=== PATIENT | female | born 1930 | race Caucasian/White ===

== ENCOUNTER 2016-10-01 12:16 | Emergency (ER) | payer OTHER ==
--- NOTE | 2016-10-01 13:04 | DIAGNOSTIC IMAGING REPORT ---
PROCEDURE: XR RIBS UNILAT W/PA CHEST-RT INDICATION: TRAUMA/INJURY TECHNIQUE: Two views of the right ribs with single PA view chest. COMPARISON: None. FINDINGS: RIGHT RIBS: There are nondisplaced fractures of the right tenth and eleventh ribs. No pneumothorax CHEST: Mild cardiomegaly. Clear lungs without pleural effusion, pneumothorax, or contusion. The other visible osseous structures are intact. IMPRESSION: 1. Nondisplaced fractures right tenth and eleventh ribs 2. Mild cardiomegaly. Lungs clear. 3. Results were called to Dr. Pop at 01:05 p.m.
--- NOTE | 2016-10-01 13:15 | DIAGNOSTIC IMAGING REPORT ---
PROCEDURE: CT HEAD WITHOUT CONTRAST INDICATION: TRAUMA/INJURY TECHNIQUE: Axial CT images were acquired through the head. Coronal and sagittal reformations were created. COMPARISON: Head CT 06/06/2014 FINDINGS: Mild cortical atrophy. Normal ventricular system and brain parenchyma. No evidence of an acute CVA, hemorrhage, mass or midline shift. Stable calcification in the right frontal lobe white matter. There is fluid in the right maxillary sinus and the right ethmoid sinus posteriorly. IMPRESSION: 1. No acute changes 2. Mild atrophy 3. Findings discussed with Donn at 1:[address] scans at this facility use dose modulation, iterative reconstruction, and/or weight-based dosing when appropriate to reduce radiation dose to as low as reasonably achievable.
--- NOTE | 2016-10-01 15:32 | ED NURSING NOTES ---
Clinical Report - Nurses [facility] [address] [place] [address] 10/01/2016 12:17 Patient: RICARDO AC TRIAGE Acuity: LEVEL 3. Chief Complaint: FALL while standing, landed on their head; became dizzy and passed out. Alert. No acute distress. KRISTYN COMA SCORE: [place] Coma Scale: 15- eyes open spontaneously (4); best verbal response- oriented x 4 (5); best motor response- obeys commands (6). --12:42 Deonna Gamez R.N. 12:34 10/01/16. BP: 159/78. HR: 60. RR: 18. O2 saturation: 97% on room air. Temp: 98.4 F (oral). Pain level now: 04/24. --12:42 Deonna Gamez R.N. Weight: 68 kg stated. Height/Length: 62 inches Per Patient. BMI: 27.4. --12:38 Deonna Gamez R.N. Medications ALPRAZolam Oral. Issa Aspirin Oral 81mg. Crestor Oral 10 mg, daily. Hydrochlorothiazide Oral 25 mg, daily. --12:37 Deonna Gamez R.N. Levoxyl Oral 75 mcg, daily. Metoprolol 100 mg, 2x a day. Omeprazole Oral. Potassium day. Tramodol 50mg q 4-6 hrs. Vit b-12, cholesterol, fish oil. --12:37 Deonna Gamez R.N. Azithromycin Oral. --12:38 Deonna Gamez R.N. Allergies Iodine. Sulfa Drugs. --12:37 Deonna aGmez R.N. History Arrived by private vehicle. Historian: patient. Accompanied by daughter. Primary physician (Bj). Location of injuries: head and right flank. This occurred today. PAST MEDICAL HX: The patient has had a hysterectomy. SOCIAL HX: Never smoker. No alcohol use or drug use. NUTRITIONAL RISK ASSESSMENT: The nutritional risk assessment revealed no deficiencies. LEARNING NEEDS ASSESSMENT: The learning needs assessment revealed no barriers. FALL RISK ASSESSMENT: Fall risk assessment completed. Risk factors identified include patient age greater than 65 years and history of fall. Fall interventions initiated. Patient placed on stretcher. Side rails up x2. Brakes on Bed in low position. Call light in reach of patient. FUNCTIONAL ASSESSMENT: Functional assessment performed: independent with the activities of daily living. SKIN INTEGRITY ASSESSMENT: Skin integrity risk assessment completed. No skin integrity risk identified. --12:42 Deonna Gamez R.N. PROBLEMS: Hip pain . Back Pain. Dizziness. Abdominal Pain. Abnormal Test. Immunizations. LNMP - Last Normal Menstrual Period. Medical Screening Exam. Hyperlipidemia. Anxiety Reaction. Dehydration. Hypokalemia. Near Syncope. Salter's Palsy. CVA - Cerebrovascular Accident. Hypothyroidism. Hypertension. --12:38 Deonna Gamez R.N. ADDITIONAL SURGERIES: Appendectomy. Colon resection. Hysterectomy. Oophorectomy. Tonsillectomy. --12:38 Deonna Gamez R.N. Assessment GENERAL / NEURO / PSYCH: Alert. Oriented X 4. Appears in no acute distress. Patient appears calm and cooperative. RESPIRATORY: Respirations not labored. CVS: Capillary refill less than 2 seconds. GI / : Abdomen soft. SKIN: Mucous membranes are pink. Skin is warm and dry. --12:42 Deonna Gamez R.N. Interventions ID band on patient. To treatment room. --12:42 Deonna Gamez R.N. PHYSICAL ASSESSMENT 12:42 10/01/16. To room via wheelchair. GENERAL / NEURO / PSYCH: Alert. Oriented X 4. Appears in no acute distress. HEENT: Pupils equal, round and reactive to light. RESPIRATORY: Respirations not labored. CVS: Pulses within normal limits. Capillary refill less than 2 seconds. GI / : Abdomen soft. EXTREMITIES: Neuro-vascular status intact to the extremity. SKIN: Skin intact. Skin is warm and dry. --12:42 Deonna Gamez R.N. HEENT: Head: tenderness, swelling and laceration present. --12:42 Deonna Gamez R.N. NURSING PROGRESS NOTES 12:43 10/01/16. Patient gowned. Two patient identifiers checked. Call light placed in reach. Side rails up x 2. Bed placed in lowest position. Brakes of bed on. Patient ready for evaluation- chart flagged. --12:43 Deonna Gamez R.N. Wound cleansed with sterile saline. --12:46 Jazmyne Wells, ER Tech1 Warming measures: blanket applied. --12:46 Jazmyne Wells, ER Tech1 13:06 10/01/2016 Hydrocodone-APAP (Hydrocodone-Acetaminophen) PO 5/325 mg Tablets 1 tab given. Allergies verified, confirmed 5 rights and sedative warning given to the patient. --13:06 Deonna Gamez R.N. 13:32 10/01/2016 Hydrocodone-APAP PO Response: no adverse reaction pain is improving. Symptoms have improved the patient feels better. --13:32 Deonna Gamez R.N. 15:43 10/01/2016 Zofran ODT (Ondansetron) PO 4 mg given. Allergies verified and confirmed 5 rights. --15:43 Deonna Gamez R.N. DISPOSITION / DISCHARGE 15:27 10/01/16. BP: 148/98. HR: 59. RR: 18. O2 saturation: 100%. Temp: 98.4 F (oral). Pain level now: 03/24. --15:28 Deonna Gamez R.N. Departure time: 1554Oct 01 2016. Condition at departure: improved and stable. No learning barriers present. Discharge instructions provided and reviewed with the patient. Reviewed medication(s) side effects, precautions and dosing information. Prescription(s) given to the patient. Patient verbalized understanding. Written instructions provided in Faroese. The patient was discharged by the physician. She was discharged home and accompanied by family. She left the Emergency Department ambulatory and via private vehicle. Family member driving. --18:55 Deonna Gamez R.N. Locked/Released at 10/01/2016 18:55 by Deonna Gamez R.N.
--- NOTE | 2016-10-01 15:32 | ED CLINICAL REPORT ---
Clinical Report - Physicians/Mid Levels [facility] [address] [place] [address] 10/01/2016 12:17 [id number] Historian- patient and family. HISTORY OF PRESENT ILLNESS Location of injuries- head and chest. Chief Complaint: FALL. The injury occurred today. Fell (slipped while standing). She experienced a syncopal episode; (after the first fall). Occurred at home. The patient complains of moderate pain. The patient sustained a blow to the head and had loss of consciousness. No neck pain or seizure. Not dazed. (no preceding symptoms). REVIEW OF SYSTEMS No numbness, hearing loss, chest pain, weakness or nausea. No vomiting. All systems otherwise negative, except as recorded above. PAST HISTORY See nurses notes. Tetanus immunization status is up-to-date. SOCIAL HISTORY Never smoker. No alcohol use or drug use. Is a local resident. ADDITIONAL NOTES The nursing notes have been reviewed. PHYSICAL EXAM Vital Signs: 10/01/2016 12:34 BP: 159/78. HR: 60. RR: 18. O2 saturation: 97%. Temp: 98.4 F. Pain level now: 8/10. Blood pressure normal. Oxygen saturation normal. Appearance: Alert. Oriented X3. No acute distress. Head: No swelling of head. No Hodge's sign or raccoon eyes. (superficial abrasion to the occipital area of the scalp. no step offs, crepitus, or jamaal abnormalities.). Eyes: Pupils equal, round and reactive to light. Pupillary exam: Right pupil round and reactive to light directly and consensually and with accommodation. Left pupil: 3mm, round and reactive to light directly and consensually and with accommodation. EOM intact. ENT: No hemotympanum. Pharynx abnormal. Dental injury present. No malocclusion. Neck: No decreased ROM or muscle spasm in the neck. No pain with movement of head/neck. Painless ROM. Non-tender. No vertebral tenderness. CVS: Heart sounds normal. Pulses normal. Respiratory: Breath sounds normal. (mild tenderness and swelling to the right lateral chest wall. no overlying skin changes, crepitus, or jamaal abnormalities.). Abdomen: No visible injury. Soft and nontender. Bowel sounds normal. No organomegaly. No mass. Femoral pulses equal. Back: No tenderness. ROM normal. Skin: Skin intact. Skin warm and dry. Normal skin color. Normal skin turgor. Extremities: Normal inspection. Pelvis stable. Extremities atraumatic. No lower extremity edema. Neuro: Oriented X 3. No motor deficit. No sensory deficit. LABS, X-RAYS, AND EKG Sternum / Ribs X-rays: (PROCEDURE: XR RIBS UNILAT W/PA CHEST-RT INDICATION: TRAUMA/INJURY TECHNIQUE: Two views of the right ribs with single PA view chest. COMPARISON: None. FINDINGS: RIGHT RIBS: There are nondisplaced fractures of the right tenth and eleventh ribs. No pneumothorax CHEST: Mild cardiomegaly. Clear lungs without pleural effusion, pneumothorax, or contusion. The other visible osseous structures are intact. IMPRESSION: 1. Nondisplaced fractures right tenth and eleventh ribs 2. Mild cardiomegaly. Lungs clear.). Views: PA and lateral of sternum and left ribs. The X-rays were independently viewed by me, interpreted by the radiologist and discussed with the radiologist. CT Head: (PROCEDURE: CT HEAD WITHOUT CONTRAST INDICATION: TRAUMA/INJURY TECHNIQUE: Axial CT images were acquired through the head. Coronal and sagittal reformations were created. COMPARISON: Head CT 06/06/2014 FINDINGS: Mild cortical atrophy. Normal ventricular system and brain parenchyma. No evidence of an acute CVA, hemorrhage, mass or midline shift. Stable calcification in the right frontal lobe white matter. There is fluid in the right maxillary sinus and the right ethmoid sinus posteriorly. IMPRESSION: 1. No acute changes 2. Mild atrophy). Head CT performed without contrast. The study was independently viewed by me and interpreted by the radiologist. The study was discussed with the radiologist (via phone and pacs). PROGRESS AND PROCEDURES Course of Care: The patient is a pleasant 85-year-old female with past medical history presenting for evaluation of fall. The patient is reporting head injury and right-sided rib pain at this time. The patient had fallen once and then fallen again afterwards. The second fall is likely due to the first fall given the patient's history. Patient will be requiring a CT scan of the head for further evaluation of head injury. Patient is not on any blood thinners. A chest x-ray and rib films of the right side also be ordered and are urged to the patient's reported chest wall pain and related findings on examination. Pain medication provided here in the emergency department. Patient is agreeable to the treatment plan. Family also updated about the patient's workup and they're agreeable. Do not feel patient needs to be evaluated for the syncope with laboratory studies were EKG. Given patient's history and examination, patient likely had syncopal event secondary to head injury. Patient's workup does not show any signs of acute intracranial pathology at this time. Wounds to the back of the head does not require suturing at this time. It has been irrigated in the emergency department. Wound infection risk discussed and return precautions provided in regards to the scalp abrasion. The patient does have findings of rib fractures on the rib films. Head discussion with patient and family in regards to the evaluation of the rib fractures. Had expressed a small risk of developing pneumonia if the patient does not take deep breaths. At this time, conservative management with pain medication and close follow-up is recommended. Patient does not need to be admitted to the hospital or require further emergency department evaluation. Discussed with patient and family workup, diagnosis, home care, follow-up, and return depressions. All questions answered. The patient and family expressed understanding of these instructions and was agreeable to them. Prior to patient's departure from the emergency department, repeat examination continues to be benign. Patient continues to be asymptomatic. Disposition: Discharged. Condition: good. CLINICAL IMPRESSION Multiple right rib fractures (10th and 11th rib, non displaced, closed). Minor closed head injury. Unknown whether a loss of consciousness occurred. (acute occipital). INSTRUCTIONS Warnings: GENERAL WARNINGS: Return or contact your physician immediately if your condition worsens or changes unexpectedly, if not improving as expected, or if other problems arise. SPECIFICALLY, return if you develop weakness, numbness, tingling, pain or incontinence. fever, shortness of breath, worsening symptoms, abnormal behavior, or other concerns. Your Current Medications: CONTINUE TAKING THE FOLLOWING MEDICATIONS: ALPRAZolam Oral. Azithromycin Oral. Issa Aspirin Oral : 81mg. Crestor Oral : 10 mg daily. Hydrochlorothiazide Oral : 25 mg daily. Levoxyl Oral : 75 mcg daily. Metoprolol* : 100 mg 2x a day. Omeprazole Oral. Potassium day*. Tramodol 50mg q 4-6 hrs*. Vit b-12, cholesterol, fish oil*. Prescription Medications: [place] 5 mg / 325 mg tablets: take 1 orally as needed for pain. Dispense fifteen (15). No refill. Substitution is permissible. Motrin 600 mg tablets: take 1 tablet orally every 6 hours as needed for pain or swelling. Dispense thirty (30). No refill. Substitution is permissible. Follow-up: Return to the emergency department as needed. Follow up with your doctor in three days. Reason for referral: recheck today's concerns. Summary of care provided to patient via paper. Screening today revealed the patient's blood pressure to be in the normal range. The patient should follow up with a primary care provider for blood pressure management. Understanding of the discharge instructions verbalized by patient. (Electronically signed by Davion Pop Dr. 10/05/2016 6:27)
--- NOTE | 2016-10-01 15:32 | ED ORDER SUMMARY ---
..... Patient: RICARDO AC OrderSheet [facility] VisitID: [id number] [place] [address] 85y, F Registration Date/Time: 10/01/2016 ORDER SHEET Weight: 68.0 kg (stated) Allergies: Iodine, Sulfa Drugs GENERAL ORDERS: CT Head wo Cont Urgent (12:37 10/01/2016 Luis Antonio Rey) (Ack 12:51 MWinterer R.N.) (13:06 MWinterer R.N.) Ribs Unilat w PA Chest Right Urgent (12:37 10/01/2016 Luis Antonio Rey) (Ack 12:51 MWinterer R.N.) (13:06 MWinterer R.N.) Irrigate Wounds (12:37 10/01/2016 Luis Antonio Rey) (12:43 MWinterer R.N.) Ice (12:39 10/01/2016 Luis Antonio Rey) (Ack 12:43 MWinterer R.N.) (12:51 MWinterer R.N.) MEDICATION ORDERS: Hydrocodone-APAP PO 5/325 mg (NOW, HIGH ALERT MEDICATION) (12:38 10/01/2016 Luis Antonio Rey) (Ack 12:43 MWinterer R.N.) (13:06 MWinterer R.N.) Zofran ODT PO 4 mg (NOW) (15:43 10/01/2016 MWinterer R.N. per protocol) (15:43 MWinterer R.N.) IV FLUIDS: ORDER SHEET NOTES: [Electronically signed by Deonna Gamez R.N. (18:55 10/01/2016)] [Electronically signed by Davion Pop Dr. (06:27 10/05/2016)] [Electronically locked/signed by Deonna Gamez R.N. (18:55 10/01/2016)]
--- NOTE | 2016-10-01 15:32 | ED ORDER SUMMARY ---
..... Patient: RICARDO AC OrderSheet [facility] VisitID: [id number] [place] [address] 85y, F Registration Date/Time: 10/01/2016 ORDER SHEET Weight: 68.0 kg (stated) Allergies: Iodine, Sulfa Drugs GENERAL ORDERS: CT Head wo Cont Urgent (12:37 10/01/2016 Luis Antonio Rey) (Ack 12:51 MWinterer R.N.) (13:06 MWinterer R.N.) Ribs Unilat w PA Chest Right Urgent (12:37 10/01/2016 Luis Antonio Rey) (Ack 12:51 MWinterer R.N.) (13:06 MWinterer R.N.) Irrigate Wounds (12:37 10/01/2016 Luis Antonio Rey) (12:43 MWinterer R.N.) Ice (12:39 10/01/2016 Luis Antonio Rey) (Ack 12:43 MWinterer R.N.) (12:51 MWinterer R.N.) MEDICATION ORDERS: Hydrocodone-APAP PO 5/325 mg (NOW, HIGH ALERT MEDICATION) (12:38 10/01/2016 Luis Antonio Rey) (Ack 12:43 MWinterer R.N.) (13:06 MWinterer R.N.) Zofran ODT PO 4 mg (NOW) (15:43 10/01/2016 MWinterer R.N. per protocol) (15:43 MWinterer R.N.) IV FLUIDS: ORDER SHEET NOTES: [Electronically signed by Deonna Gamez R.N. (18:55 10/01/2016)] [Electronically signed by Davion Pop Dr. (06:27 10/05/2016)] [Electronically locked/signed by Deonna Gamez R.N. (18:55 10/01/2016)]
--- NOTE | 2016-10-05 06:28 | ED DISCHARGE INSTRUCTIONS ---
Patient: RICARDO AC General Instructions [facility] VisitID: [id number] [place] [address] 85y, F Registration Date/Time: 10/01/2016 Multiple right rib fractures (10th and 11th rib, non displaced, closed). Minor closed head injury. Unknown whether a loss of consciousness occurred. (acute occipital). INSTRUCTIONS Warnings: GENERAL WARNINGS: Return or contact your physician immediately if your condition worsens or changes unexpectedly, if not improving as expected, or if other problems arise. SPECIFICALLY, return if you develop weakness, numbness, tingling, pain or incontinence. fever, shortness of breath, worsening symptoms, abnormal behavior, or other concerns. Your Current Medications: CONTINUE TAKING THE FOLLOWING MEDICATIONS: ALPRAZolam Oral. Azithromycin Oral. Issa Aspirin Oral : 81mg. Crestor Oral : 10 mg daily. Hydrochlorothiazide Oral : 25 mg daily. Levoxyl Oral : 75 mcg daily. Metoprolol* : 100 mg 2x a day. Omeprazole Oral. Potassium day*. Tramodol 50mg q 4-6 hrs*. Vit b-12, cholesterol, fish oil*. Prescription Medications: [place] 5 mg / 325 mg tablets: take 1 orally as needed for pain. Dispense fifteen (15). No refill. Substitution is permissible. Motrin 600 mg tablets: take 1 tablet orally every 6 hours as needed for pain or swelling. Dispense thirty (30). No refill. Substitution is permissible. Follow-up: Return to the emergency department as needed. Follow up with your doctor in three days. Reason for referral: recheck today's concerns. Summary of care provided to patient via paper. Screening today revealed the patient's blood pressure to be in the normal range. The patient should follow up with a primary care provider for blood pressure management. Understanding of the discharge instructions verbalized by patient. ADDITIONAL INFORMATION Concussion (No Wake-Up) A concussion happens when you hit your head with enough force to shake up the brain. This may cause you to lose consciousness be "knocked out" - but not always. Depending on how hard you hit your head, it will take from a few hours up to a few days to get better. Sometimes symptoms may last a few months or longer. This is called post-concussion syndrome. At first, you may have a headache, nausea, vomiting, or dizziness. You may also have problems concentrating or remembering things. This is normal. Symptoms should get better as the hours and days go by. Symptoms that get worse could be a sign of a more serious injury. This might be a bruise or bleeding in the brain. Thats why its important to watch for the warning signs listed below. Home care Follow these tips to help care for yourself at home: During the next day (24 hours) someone must stay with you to check for the signs below. If your face or scalp swells, apply an ice pack for 20 minutes every 1 to 2 hours. Do this until the swelling starts to go down. You can make an ice pack by putting ice cubes in a plastic bag and wrapping the bag in a towel. for 20 minutes every 1-2 hours until the swelling starts to go down. You may use acetaminophen to control pain, unless another pain medicine was prescribed. If you have chronic liver or kidney disease, talk with your doctor before using these medicines. Also talk with your doctor if you ever had a stomach ulcer or GI bleeding. For the next 24 hours: Dont drink alcohol or take sedatives or medicines that make you sleepy. Dont drive or operate machinery. Avoid doing anything strenuous. Dont lift or strain. Dont return to sports or any activity that could cause you to hit your head until all symptoms are gone and you have been cleared by your doctor. A second head injury before fully recovering from the first one can lead to serious brain injury. Follow-up care Follow up with your doctor in 1 week, or as directed. Note: A radiologist will review any X-rays or CT scans that were taken. You will be told of any new findings that may affect your care. When to seek medical care Get prompt medical attention if any of these occur: Repeated vomiting Headache or dizziness that is severe or gets worse Unusual drowsiness, or unable to wake up as usual Confusion or change in behavior or speech, or memory loss Blurred vision Convulsion (seizure) Swelling on the scalp or face that gets worse Redness, warmth, or pus from the swollen area Fluid draining from or bleeding from the nose or ears Rib Fracture You have a fracture (break) of one or more ribs. Rib fractures do not require a cast like other bones. They will heal by themselves in about 4-6 weeks. The first 3-4 weeks will be the most painful because deep breathing, coughing or changing position from sitting to lying down, may cause the broken ends to move slightly. Home Care: Rest. You should not be doing any heavy lifting or strenuous exertion until the pain goes away. Because it hurts to breathe when you have a broken rib, there is risk of getting pneumonia from poor airflow through your lungs. To prevent this: Take four very deep breaths at least four times a day (exhale through pursed lips as if you are blowing up a balloon). If an "incentive spirometer" (breathing exercise device) was given to you, use it at least four times a day, or as directed. Apply an ice pack (ice cubes in a plastic bag, wrapped in a towel) over the injured area for 20 minutes every 1-2 hours the first day. Continue with ice packs 3-4 times a day for the next two days, then as needed for the relief of pain and swelling. You may use acetaminophen (Tylenol) or ibuprofen (Motrin, Advil) to control pain, unless another pain medicine was prescribed. [NOTE: If you have chronic liver or kidney disease or ever had a stomach ulcer or GI bleeding, talk with your doctor before using these medicines.] If your pain is not controlled by the treatment given, contact your doctor. Sometimes a stronger pain medicine may be needed. A nerve block (numbing the nerve between the ribs) can be performed in case of severe pain. Follow Up with your doctor during the next week, or as advised. Rarely, a broken rib will cause complications within the first few days that may not be evident during your initial exam (such as, collapsed lung, bleeding around the lung or into the abdomen, or pneumonia). Therefore, watch for the signs below. [NOTE: If x-rays were taken, they will be reviewed by a radiologist. You will be notified of any new findings that may affect your care.] Get Prompt Medical Attention if any of the following occur: Shortness of breath Increasing chest pain with breathing Dizziness, weakness or fainting New or worsening abdominal pain Fever of 100.4F (38C) or higher, or as directed by your healthcare provider Congested cough Hydrocodone Bitartrate, Acetaminophen Oral tablet What is this medicine? ACETAMINOPHEN; HYDROCODONE (a set a JOSELUIS solomon fen; ahmet droe KOE done) is a pain reliever. It is used to treat mild to moderate pain. How should I use this medicine? Take this medicine by mouth. Swallow it with a full glass of water. Follow the directions on the prescription label. If the medicine upsets your stomach, take the medicine with food or milk. Do not take more than you are told to take. Talk to your medical office specialist regarding the use of this medicine in children. This medicine is not approved for use in children. What side effects may I notice from receiving this medicine? Side effects that you should report to your doctor or health certified social workers in health care as soon as possible: allergic reactions like skin rash, itching or hives, swelling of the face, lips, or tongue breathing problems confusion feeling faint or lightheaded, falls stomach pain yellowing of the eyes or skin Side effects that usually do not require medical attention (report to your doctor or health certified social workers in health care if they continue or are bothersome): nausea, vomiting stomach upset What may interact with this medicine? alcohol antihistamines isoniazid medicines for depression, anxiety, or psychotic disturbances medicines for sleep muscle relaxants naltrexone narcotic medicines (opiates) for pain phenobarbital ritonavir tramadol What if I miss a dose? If you miss a dose, take it as soon as you can. If it is almost time for your next dose, take only that dose. Do not take double or extra doses. Where should I keep my medicine? Keep out of the reach of children. This medicine can be abused. Keep your medicine in a safe place to protect it from theft. Do not share this medicine with anyone. Selling or giving away this medicine is dangerous and against the law. Store at room temperature between 15 and 30 degrees C (59 and 86 degrees F). Protect from light. Keep container tightly closed. Throw away any unused medicine after the expiration date. Discard unused medicine and used packaging carefully. Pets and children can be harmed if they find used or lost packages. What should I tell my health care provider before I take this medicine? They need to know if you have any of these conditions: brain tumor Crohn's disease, inflammatory bowel disease, or ulcerative colitis drink more than 3 alcohol-containing drinks per day drug abuse or addiction head injury heart or circulation problems kidney disease or problems going to the bathroom liver disease lung disease, asthma, or breathing problems an unusual or allergic reaction to acetaminophen, hydrocodone, other opioid analgesics, other medicines, foods, dyes, or preservatives or trying to get breast-feeding What should I watch for while using this medicine? Tell your doctor or health certified social workers in health care if your pain does not go away, if it gets worse, or if you have new or a different type of pain. You may develop tolerance to the medicine. Tolerance means that you will need a higher dose of the medicine for pain relief. Tolerance is normal and is expected if you take the medicine for a long time. Do not suddenly stop taking your medicine because you may develop a severe reaction. Your body becomes used to the medicine. This does NOT mean you are addicted. Addiction is a behavior related to getting and using a drug for a non-medical reason. If you have pain, you have a medical reason to take pain medicine. Your doctor will tell you how much medicine to take. If your doctor wants you to stop the medicine, the dose will be slowly lowered over time to avoid any side effects. You may get drowsy or dizzy when you first start taking the medicine or change doses. Do not drive, use machinery, or do anything that may be dangerous until you know how the medicine affects you. Stand or sit up slowly. There are different types of narcotic medicines (opiates) for pain. If you take more than one type at the same time, you may have more side effects. Give your health care provider a list of all medicines you use. Your doctor will tell you how much medicine to take. Do not take more medicine than directed. Call emergency for help if you have problems breathing. The medicine will cause constipation. Try to have a bowel movement at least every 2 to 3 days. If you do not have a bowel movement for 3 days, call your doctor or health certified social workers in health care. Too much acetaminophen can be very dangerous. Do not take Tylenol (acetaminophen) or medicines that contain acetaminophen with this medicine. Many non-prescription medicines contain acetaminophen. Always read the labels carefully. Ibuprofen Oral tablet What is this medicine? IBUPROFEN (eye BYOO proe fen) is a non-steroidal anti-inflammatory drug (NSAID). It is used for dental pain, fever, headaches or migraines, osteoarthritis, rheumatoid arthritis, or painful monthly periods. It can also relieve minor aches and pains caused by a cold, flu, or sore throat. How should I use this medicine? Take this medicine by mouth with a glass of water. Follow the directions on the prescription label. Take this medicine with food if your stomach gets upset. Try to not lie down for at least 10 minutes after you take the medicine. Take your medicine at regular intervals. Do not take your medicine more often than directed. A special MedGuide will be given to you by the pharmacist with each prescription and refill. Be sure to read this information carefully each time. Talk to your medical office specialist regarding the use of this medicine in children. Special care may be needed. What side effects may I notice from receiving this medicine? Side effects that you should report to your doctor or health certified social workers in health care as soon as possible: allergic reactions like skin rash, itching or hives, swelling of the face, lips, or tongue black or bloody stools, blood in the urine or in vomit breathing problems changes in vision chest pain general ill feeling or flu-like symptoms nausea or vomiting redness, blistering, peeling or loosening of the skin, including inside the mouth slurred speech or weakness on one side of the body stomach pain unexplained weight gain or swelling unusually weak or tired yellowing of eyes or skin Side effects that usually do not require medical attention (report to your doctor or health certified social workers in health care if they continue or are bothersome): constipation or diarrhea dizziness gas or heartburn stomach upset What may interact with this medicine? Do not take this medicine with any of the following medications: cidofovir ketorolac methotrexate pemetrexed This medicine may also interact with the following medications: alcohol aspirin diuretics lithium other drugs for inflammation like prednisone warfarin What if I miss a dose? If you miss a dose, take it as soon as you can. If it is almost time for your next dose, take only that dose. Do not take double or extra doses. Where should I keep my medicine? Keep out of the reach of children. Store at room temperature between 15 and 30 degrees C (59 and 86 degrees F). Keep container tightly closed. Throw away any unused medicine after the expiration date. What should I tell my health care provider before I take this medicine? They need to know if you have any of these conditions: asthma cigarette smoker drink more than 3 alcohol containing drinks a day heart disease or circulation problems such as heart failure or leg edema (fluid retention) high blood pressure kidney disease liver disease stomach bleeding or ulcers an unusual or allergic reaction to ibuprofen, aspirin, other NSAIDS, other medicines, foods, dyes, or preservatives or trying to get breast-feeding What should I watch for while using this medicine? Tell your doctor or healthcare professional if your symptoms do not start to get better or if they get worse. This medicine does not prevent heart attack or stroke. In fact, this medicine may increase the chance of a heart attack or stroke. The chance may increase with longer use of this medicine and in people who have heart disease. If you take aspirin to prevent heart attack or stroke, talk with your doctor or health certified social workers in health care. Do not take other medicines that contain aspirin, ibuprofen, or naproxen with this medicine. Side effects such as stomach upset, nausea, or ulcers may be more likely to occur. Many medicines available without a prescription should not be taken with this medicine. This medicine can cause ulcers and bleeding in the stomach and intestines at any time during treatment. Ulcers and bleeding can happen without warning symptoms and can cause . To reduce your risk, do not smoke cigarettes or drink alcohol while you are taking this medicine. You may get drowsy or dizzy. Do not drive, use machinery, or do anything that needs mental alertness until you know how this medicine affects you. Do not stand or sit up quickly, especially if you are an older patient. This reduces the risk of dizzy or fainting spells. This medicine can cause you to bleed more easily. Try to avoid damage to your teeth and gums when you brush or floss your teeth. You have been given the following additional information: Concussion, No Wake-Up Fracture, Rib Hydrocodone Bitartrate, Acetaminophen Oral tablet Ibuprofen Oral tablet (Electronically signed by Davion Pop Dr. 10/05/2016 6:27)
--- NOTE | 2016-10-05 06:28 | ED MED RECONCILIATION SUMMARY ---
Patient: RICARDO AC Medication Reconciliation Report [facility] VisitID: [id number] [place] [address] 85y, F Registration Date/Time: 10/01/2016 Weight: 68.0 kg Height/Length: 62 in. BMI: 27.4 ALLERGIES: Iodine, Sulfa Drugs The patient's Home Medications are listed below: CONTINUE TAKING THE FOLLOWING MEDICATIONS: ALPRAZolam Oral Azithromycin Oral Issa Aspirin Oral 81mg Crestor Oral 10 mg, daily Hydrochlorothiazide Oral 25 mg, daily Levoxyl Oral 75 mcg, daily Metoprolol 100 mg, 2x a day Omeprazole Oral Potassium day Tramodol 50mg q 4-6 hrs Vit b-12, cholesterol, fish oil The source(s) of the original Home Medication information: Not obtained. The following Medications were given to the patient in the Emergency Department: Hydrocodone-APAP [PO] PO 1 tab, administered: 10/01/2016 1:06:00 PM Zofran ODT [PO] PO 4 mg, administered: 10/01/2016 3:43:00 PM The following Medications were prescribed to the patient: [place] 5 mg / 325 mg tablets: take 1 orally as needed for pain. Dispense fifteen (15). No refill. Substitution is permissible. -- Davion Pop Dr. Motrin 600 mg tablets: take 1 tablet orally every 6 hours as needed for pain or swelling. Dispense thirty (30). No refill. Substitution is permissible. -- Davion Pop Dr.
--- NOTE | 2016-10-05 06:28 | ED MAR SUMMARY ---
..... Medication Administration Record [facility] [address] [place] [address] Patient: RICARDO AC Visit ID: [id number] 85y, F Weight: 68.0 kg Height/Length: 62 in BMI: 27.4 ALLERGIES: Iodine, Sulfa Drugs Given 13:06 10/01/2016 Deonna Gamez, RElizabethNElizabeth Medication Administered: HYDROCODONE-APAP [PO] (HYDROCODONE-ACETAMINOPHEN), Dose: 1 tab 5/325 mg Tablets PO. Medication Ordered: Hydrocodone-APAP PO 5/325 mg (NOW, HIGH ALERT MEDICATION). Given 15:43 10/01/2016 Deonna Gamez, RElizabethN. Medication Administered: ZOFRAN ODT [PO] (ONDANSETRON), Dose: 4 mg PO. Medication Ordered: Zofran ODT PO 4 mg (NOW).
--- NOTE | 2016-10-05 06:28 | ED MAR SUMMARY ---
..... Medication Administration Record [facility] [address] [place] [address] Patient: RICARDO AC Visit ID: [id number] 85y, F Weight: 68.0 kg Height/Length: 62 in BMI: 27.4 ALLERGIES: Iodine, Sulfa Drugs Given 13:06 10/01/2016 Deonna Gamez, RElizabethNElizabeth Medication Administered: HYDROCODONE-APAP [PO] (HYDROCODONE-ACETAMINOPHEN), Dose: 1 tab 5/325 mg Tablets PO. Medication Ordered: Hydrocodone-APAP PO 5/325 mg (NOW, HIGH ALERT MEDICATION). Given 15:43 10/01/2016 Deonna Gamez, RElizabethN. Medication Administered: ZOFRAN ODT [PO] (ONDANSETRON), Dose: 4 mg PO. Medication Ordered: Zofran ODT PO 4 mg (NOW).
--- NOTE | 2016-10-05 06:28 | ED MED RECONCILIATION SUMMARY ---
Patient: RICARDO AC Medication Reconciliation Report [facility] VisitID: [id number] [place] [address] 85y, F Registration Date/Time: 10/01/2016 Weight: 68.0 kg Height/Length: 62 in. BMI: 27.4 ALLERGIES: Iodine, Sulfa Drugs The patient's Home Medications are listed below: CONTINUE TAKING THE FOLLOWING MEDICATIONS: ALPRAZolam Oral Azithromycin Oral Issa Aspirin Oral 81mg Crestor Oral 10 mg, daily Hydrochlorothiazide Oral 25 mg, daily Levoxyl Oral 75 mcg, daily Metoprolol 100 mg, 2x a day Omeprazole Oral Potassium day Tramodol 50mg q 4-6 hrs Vit b-12, cholesterol, fish oil The source(s) of the original Home Medication information: Not obtained. The following Medications were given to the patient in the Emergency Department: Hydrocodone-APAP [PO] PO 1 tab, administered: 10/01/2016 1:06:00 PM Zofran ODT [PO] PO 4 mg, administered: 10/01/2016 3:43:00 PM The following Medications were prescribed to the patient: [place] 5 mg / 325 mg tablets: take 1 orally as needed for pain. Dispense fifteen (15). No refill. Substitution is permissible. -- Davion Pop Dr. Motrin 600 mg tablets: take 1 tablet orally every 6 hours as needed for pain or swelling. Dispense thirty (30). No refill. Substitution is permissible. -- Davion Pop Dr.
== END 2016-10-01 16:14 | disposition home or self-care (01) ==
LOC: ED SRH 12:16
DX: S22.41XA Multiple fractures of ribs, right side, initial encounter for closed fracture (principal); W01.0XXA Fall on same level from slipping, tripping and stumbling without subsequent striking against object, initial encounter; Y92.009 Unspecified place in unspecified non-institutional (private) residence as the place of occurrence of the external cause; Y93.9 Activity, unspecified; Y99.9 Unspecified external cause status

== ENCOUNTER 2017-02-11 17:39 | Emergency (ER) | payer OTHER ==
--- NOTE | 2017-02-11 20:00 | DIAGNOSTIC IMAGING REPORT ---
PROCEDURE: XR CHEST 1 VIEW INDICATION: WEAKNESS TECHNIQUE: Portable AP view (19 3 hours). COMPARISON: Compared to chest x-ray on 06/06/2014. FINDINGS: Lungs are clear. Mild cardiomegaly. Tortuous thoracic aorta. Old healed fracture of the left humeral head and neck. Thorax is otherwise normal. IMPRESSION: 1. Mild cardiomegaly. 2. Otherwise negative chest.
--- NOTE | 2017-02-11 21:31 | ED NURSING NOTES ---
Clinical Report - Nurses [facility] [address] [place] [address] 02/11/2017 17:39 [id number] Triage time 17:47 Feb 11 2017. Acuity: LEVEL 3. Chief Complaint: WEAKNESS (High BP). KRISTYN COMA SCORE: [place] Coma Scale: 15- eyes open spontaneously (4); best verbal response- oriented x 4 (5); best motor response- obeys commands (6). --17:51 Abel Mack R.N. 17:46 02/11/17. BP: 198/84. HR: 74. RR: 20. O2 saturation: 98%. Temp: 97.8 F. Pain level now 0/10. --17:51 Abel Mack R.N. Weight: 70.3 kg stated. Height/Length: 62 inches Per Patient. BMI: 28.4. --17:51 Abel Mack R.N. Medications ALPRAZolam Oral. --17:49 Abel Mack R.N. Azithromycin Oral. Issa Aspirin Oral 81mg. Crestor Oral 10 mg, daily. Hydrochlorothiazide Oral 25 mg, daily. Levoxyl Oral 75 mcg, daily. Metoprolol 100 mg, 2x a day. Omeprazole Oral. Potassium day. Tramodol 50mg q 4-6 hrs. Vit b-12, cholesterol, fish oil. --17:49 Abel Mack R.N. Allergies Iodine. Sulfa Drugs. --17:49 Abel Mack R.N. History Arrived by private vehicle. Historian: patient. Accompanied by family. ( 2 days of feeling really tired "like carrying a weight".). She has had weakness. No fever, cough, difficulty breathing or skin rash. Denies muscle aches. 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 PAST MEDICAL HX: Hypertension. No history of diabetes mellitus, heart disease or lung disease. Immunizations: up-to-date. The patient is post-menopausal. SOCIAL HX: Never smoker. No alcohol use or drug use. SELF HARM ASSESSMENT: A self harm assessment was performed. The patient answered "no" to the question "Have you recently felt down, depressed, or hopeless?" and "Do you have thoughts of harming or killing yourself?". FALL RISK ASSESSMENT: Fall risk assessment completed. No fall risk identified. NUTRITIONAL RISK ASSESSMENT: The nutritional risk assessment revealed no deficiencies. FUNCTIONAL ASSESSMENT: Functional assessment: no impairments noted. LEARNING NEEDS ASSESSMENT: The learning needs assessment revealed no barriers. ABUSE ASSESSMENT: Abuse assessment: (yes) The patient was asked "Do you feel safe in your home?". SKIN INTEGRITY ASSESSMENT: Skin integrity risk assessment completed. No skin integrity risk identified. --17:51 Abel Mack R.N. PROBLEMS: Rib Fracture. Head Injury. Hip pain . Back Pain. Dizziness. Abdominal Pain. Abnormal Test. Immunizations. LNMP - Last Normal Menstrual Period. Medical Screening Exam. Hyperlipidemia. Anxiety Reaction. Dehydration. Hypokalemia. Near Syncope. Salter's Palsy. CVA - Cerebrovascular Accident. Hypothyroidism. Hypertension. --17:50 Abel Mack R.N. Gastritis [RuleOut]. --17:50 Abel Mack R.N. Interventions ID band on patient. --17:51 Abel Mack R.N. PHYSICAL ASSESSMENT Ambulatory to room. GENERAL / NEURO / PSYCH: Alert. Oriented X 4. Appears in no acute distress. HEENT: Pupils equal, round and reactive to light. ( [place] palsy from previous). RESPIRATORY: Respirations not labored. Chest nontender. Breath sounds within normal limits. CVS: Normal sinus rhythm noted. Capillary refill less than 2 seconds. Pulses within normal limits. GI / : ( Last BM today and normal). Abdomen soft and nontender and normal bowel sounds. SKIN: Skin intact. Skin is warm and dry. Normal skin turgor. --17:52 Abel Mack R.N. ( Patient denies having any pain currently.). GENERAL / NEURO / PSYCH: Alert. Oriented X 4. Appears in no acute distress. Does not appear in pain or distress or anxious. RESPIRATORY: Respirations not labored. CVS: Normal sinus rhythm noted. Capillary refill less than 2 seconds. GI / : Abdomen soft and nontender. SKIN: Skin intact. Skin is warm and dry. --19:11 Jasper Hardy R.N. NURSING PROGRESS NOTES The initial plan of care for this patient includes an assessment with efforts to address patient positioning and comfortable environmental temperature. Pulse oximeter and NIBP monitor placed on patient. Patient gowned. Head of bed elevated 75 degrees. Reassurance given. Call light placed in reach. Side rails up x 1. Bed placed in lowest position. Brakes of bed on. --17:53 Abel Mack R.N. EKG time: (1840). EKG was ordered, performed by roger hurt and shown to the ED physician. --18:42 Todd Cade, JESÚS Tech1 19:06 02/11/2017 Site #1 started via IV in the right antecubital space with an 20g angiocath, with aseptic technique and good blood return; one attempt. Blood drawn: rainbow set. Labeled in the presence of the patient and sent to the lab. Saline lock flushed with 10 mL saline. --19:06 Abel Mack R.N. ( Report received from Mitch Roman RN). --19:09 Jasper Hardy R.N. 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 --19:09 Jasper Hardy R.N. 19:00 02/11/17. BP: 185/87. HR: 65. RR: 18. O2 saturation: 98%. 18:45 02/11/17. BP: 193/85. HR: 88. RR: 20. O2 saturation: 100%. 18:30 02/11/17. BP: 179/83. HR: 68. RR: 18. O2 saturation: 98%. 18:15 02/11/17. BP: 169/85. HR: 65. RR: 18. O2 saturation: 98%. --19:15 Abel Mack R.N. DISPOSITION / DISCHARGE Departure time: 21:37. Condition at departure: stable. No learning barriers present. Discharge instructions provided and reviewed with the patient and family. Reviewed warnings. Treatments reviewed. Reviewed referrals for followup. Patient and family verbalized understanding. Written instructions provided in Croatian. The patient was discharged home and accompanied by family. She left the Emergency Department ambulatory and via private vehicle. Family member driving. --21:37 Jasper Hardy R.N. 21:19 02/11/17. BP: 142/79. HR: 78. RR: 19 (regular and unlabored). O2 saturation: 95% on room air. --21:37 Jasper Hardy R.N. 21:37 02/11/2017 Site #1 removed upon discharge. Manual pressure and bandage applied. --21:37 Jasper Hardy R.N. 21:42 02/11/17. Pain level now 0/10. --21:42 Jsaper Hardy R.N. Locked/Released at 02/11/2017 21:42 by Jasper Hardy R.N.
--- NOTE | 2017-02-11 21:31 | ED ORDER SUMMARY ---
..... Patient: RICARDO AC OrderSheet [facility] VisitID: [id number] [place] [address] 86y, F Registration Date/Time: 02/11/2017 ORDER SHEET Weight: 70.3 kg (stated) Allergies: Iodine, Sulfa Drugs GENERAL ORDERS: Chest 1V Urgent (18:28 02/11/2017 Sandie MCCAIN) (Ack 18:31 Jake ER Tech1) (19:05 LWhalen R.N.) UA-Culture if indicated (NEEDS TO BE A CATH UA.) Urgent (18:28 02/11/2017 Sandie MCCAIN) (Ack 18:31 Jake ER Tech1) (19:04 LWhalen R.N.) - (CATH UA PLZ) (18:29 02/11/2017 Sandie MCCAIN) (19:04 LWhalen R.N.) Supervisor Metal Fabricating (Continuous) (18:02/11/2017 Sandie MCCAIN) (19:04 LWhalen R.N.) Cardiac Panel Stat (18:30 02/11/2017 Sandie MCCAIN) (Ack 18:31 Jake ER Tech1) (19:04 LWhalen R.N.) BNP Urgent (18:30 02/11/2017 Sandie MCCAIN) (Ack 18:31 Jake ER Tech1) (19:04 LWhalen R.N.) Lipase Urgent (18:30 02/11/2017 Sandie MCCAIN) (Ack 18:31 Jake ER Tech1) (19:04 LWhalen R.N.) EKG - ER Stat (18:30 02/11/2017 Sandie MCCAIN) (Ack 18:31 Jake ER Tech1) (18:41 PWeisuze ER Tech1) Oxygen (2 L/min) (NC) (18:30 02/11/2017 Sandie MCCAIN) (19:05 LWhalen R.N.) Pulse oximeter (18:30 02/11/2017 Sandie MCCAIN) (19:04 LWhalen R.N.) TSH Urgent (19:10 02/11/2017 Sandie MCCAIN) (Ack 19:12 PWeiler ER Tech1) (19:13 PWeiler ER Tech1) MEDICATION ORDERS: IV FLUIDS: IV Saline Lock (18:30 02/11/2017 Sandie MCCAIN) (19:06 Lizbeth Burton) ORDER SHEET NOTES: [Electronically signed by Jasper Hardy R.N. (21:42 02/11/2017)] [Electronically signed by Pako Mata MD (12:37 02/14/2017)] [Electronically locked/signed by Jasper Hardy R.N. (21:42 02/11/2017)]
--- NOTE | 2017-02-11 21:31 | ED ORDER SUMMARY ---
..... Patient: RICARDO AC OrderSheet [facility] VisitID: [id number] [place] [address] 86y, F Registration Date/Time: 02/11/2017 ORDER SHEET Weight: 70.3 kg (stated) Allergies: Iodine, Sulfa Drugs GENERAL ORDERS: Chest 1V Urgent (18:28 02/11/2017 Sandie MCCAIN) (Ack 18:31 Jake ER Tech1) (19:05 LWhalen R.N.) UA-Culture if indicated (NEEDS TO BE A CATH UA.) Urgent (18:28 02/11/2017 Sandie MCCAIN) (Ack 18:31 Jake ER Tech1) (19:04 LWhalen R.N.) - (CATH UA PLZ) (18:29 02/11/2017 Sandie MCCAIN) (19:04 LWhalen R.N.) Therapist Speech (Continuous) (18:02/11/2017 Sandie MCCAIN) (19:04 LWhalen R.N.) Cardiac Panel Stat (18:30 02/11/2017 Sandie MCCAIN) (Ack 18:31 Jake ER Tech1) (19:04 LWhalen R.N.) BNP Urgent (18:30 02/11/2017 Sandie MCCAIN) (Ack 18:31 Jake ER Tech1) (19:04 LWhalen R.N.) Lipase Urgent (18:30 02/11/2017 Sandie MCCAIN) (Ack 18:31 Jake ER Tech1) (19:04 LWhalen R.N.) EKG - ER Stat (18:30 02/11/2017 Sandie MCCAIN) (Ack 18:31 Jake ER Tech1) (18:41 PWeisuze ER Tech1) Oxygen (2 L/min) (NC) (18:30 02/11/2017 Sandie MCCAIN) (19:05 LWhalen R.N.) Pulse oximeter (18:30 02/11/2017 Sandie MCCAIN) (19:04 LWhalen R.N.) TSH Urgent (19:10 02/11/2017 Sanide MCCAIN) (Ack 19:12 PWeiler ER Tech1) (19:13 PWeiler ER Tech1) MEDICATION ORDERS: IV FLUIDS: IV Saline Lock (18:30 02/11/2017 Sandie MCCAIN) (19:06 Lizbeth Burton) ORDER SHEET NOTES: [Electronically signed by Jasper Hardy R.N. (21:42 02/11/2017)] [Electronically signed by Pako Mata MD (12:37 02/14/2017)] [Electronically locked/signed by Jasper Hardy R.N. (21:42 02/11/2017)]
--- NOTE | 2017-02-11 21:31 | ED NURSING NOTES ---
Clinical Report - Nurses [facility] [address] [place] [address] 02/11/2017 17:39 [id number] TRI[facility] Triage time 17:47 Feb 11 2017. Acuity: LEVEL 3. Chief Complaint: WEAKNESS (High BP). KRISTYN COMA SCORE: [place] Coma Scale: 15- eyes open spontaneously (4); best verbal response- oriented x 4 (5); best motor response- obeys commands (6). --17:51 Abel Mack R.N. 17:46 02/11/17. BP: 198/84. HR: 74. RR: 20. O2 saturation: 98%. Temp: 97.8 F. Pain level now 0/10. --17:51 Abel Mack R.N. Weight: 70.3 kg stated. Height/Length: 62 inches Per Patient. BMI: 28.4. --17:51 Abel Mack R.N. Medications ALPRAZolam Oral. --17:49 Abel Mack R.N. Azithromycin Oral. Issa Aspirin Oral 81mg. Crestor Oral 10 mg, daily. Hydrochlorothiazide Oral 25 mg, daily. Levoxyl Oral 75 mcg, daily. Metoprolol 100 mg, 2x a day. Omeprazole Oral. Potassium day. Tramodol 50mg q 4-6 hrs. Vit b-12, cholesterol, fish oil. --17:49 Abel Mack R.N. Allergies Iodine. Sulfa Drugs. --17:49 Abel Mack R.N. History Arrived by private vehicle. Historian: patient. Accompanied by family. ( 2 days of feeling really tired "like carrying a weight".). She has had weakness. No fever, cough, difficulty breathing or skin rash. Denies muscle aches. 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 PAST MEDICAL HX: Hypertension. No history of diabetes mellitus, heart disease or lung disease. Immunizations: up-to-date. The patient is post-menopausal. SOCIAL HX: Never smoker. No alcohol use or drug use. SELF HARM ASSESSMENT: A self harm assessment was performed. The patient answered "no" to the question "Have you recently felt down, depressed, or hopeless?" and "Do you have thoughts of harming or killing yourself?". FALL RISK ASSESSMENT: Fall risk assessment completed. No fall risk identified. NUTRITIONAL RISK ASSESSMENT: The nutritional risk assessment revealed no deficiencies. FUNCTIONAL ASSESSMENT: Functional assessment: no impairments noted. LEARNING NEEDS ASSESSMENT: The learning needs assessment revealed no barriers. ABUSE ASSESSMENT: Abuse assessment: (yes) The patient was asked "Do you feel safe in your home?". SKIN INTEGRITY ASSESSMENT: Skin integrity risk assessment completed. No skin integrity risk identified. --17:51 Abel Mack R.N. PROBLEMS: Rib Fracture. Head Injury. Hip pain . Back Pain. Dizziness. Abdominal Pain. Abnormal Test. Immunizations. LNMP - Last Normal Menstrual Period. Medical Screening Exam. Hyperlipidemia. Anxiety Reaction. Dehydration. Hypokalemia. Near Syncope. Salter's Palsy. CVA - Cerebrovascular Accident. Hypothyroidism. Hypertension. --17:50 Abel Mack R.N. Gastritis [RuleOut]. --17:50 Abel Mack R.N. Interventions ID band on patient. --17:51 Aebl Mack R.N. PHYSICAL ASSESSMENT Ambulatory to room. GENERAL / NEURO / PSYCH: Alert. Oriented X 4. Appears in no acute distress. HEENT: Pupils equal, round and reactive to light. ( [place] palsy from previous). RESPIRATORY: Respirations not labored. Chest nontender. Breath sounds within normal limits. CVS: Normal sinus rhythm noted. Capillary refill less than 2 seconds. Pulses within normal limits. GI / : ( Last BM today and normal). Abdomen soft and nontender and normal bowel sounds. SKIN: Skin intact. Skin is warm and dry. Normal skin turgor. --17:52 Abel Mack R.N. ( Patient denies having any pain currently.). GENERAL / NEURO / PSYCH: Alert. Oriented X 4. Appears in no acute distress. Does not appear in pain or distress or anxious. RESPIRATORY: Respirations not labored. CVS: Normal sinus rhythm noted. Capillary refill less than 2 seconds. GI / : Abdomen soft and nontender. SKIN: Skin intact. Skin is warm and dry. --19:11 Jasper Hardy R.N. NURSING PROGRESS NOTES The initial plan of care for this patient includes an assessment with efforts to address patient positioning and comfortable environmental temperature. Pulse oximeter and NIBP monitor placed on patient. Patient gowned. Head of bed elevated 75 degrees. Reassurance given. Call light placed in reach. Side rails up x 1. Bed placed in lowest position. Brakes of bed on. --17:53 Abel Mack R.N. EKG time: (1840). EKG was ordered, performed by roger hurt and shown to the ED physician. --18:42 Todd Cade, JESÚS Tech1 19:06 02/11/2017 Site #1 started via IV in the right antecubital space with an 20g angiocath, with aseptic technique and good blood return; one attempt. Blood drawn: rainbow set. Labeled in the presence of the patient and sent to the lab. Saline lock flushed with 10 mL saline. --19:06 Abel Mack R.N. ( Report received from Mitch Roman RN). --19:09 Jasper Hardy R.N. ( Patient placed on O2 and front desk monitor). --19:09 Jasper Hardy R.N. 19:00 02/11/17. BP: 185/87. HR: 65. RR: 18. O2 saturation: 98%. 18:45 02/11/17. BP: 193/85. HR: 88. RR: 20. O2 saturation: 100%. 18:30 02/11/17. BP: 179/83. HR: 68. RR: 18. O2 saturation: 98%. 18:15 02/11/17. BP: 169/85. HR: 65. RR: 18. O2 saturation: 98%. --19:15 Abel Mack R.N. DISPOSITION / DISCHARGE Departure time: 21:37. Condition at departure: stable. No learning barriers present. Discharge instructions provided and reviewed with the patient and family. Reviewed warnings. Treatments reviewed. Reviewed referrals for followup. Patient and family verbalized understanding. Written instructions provided in Sami. The patient was discharged home and accompanied by family. She left the Emergency Department ambulatory and via private vehicle. Family member driving. --21:37 Jasper Hardy R.N. 21:19 02/11/17. BP: 142/79. HR: 78. RR: 19 (regular and unlabored). O2 saturation: 95% on room air. --21:37 Jasper Hardy R.N. 21:37 02/11/2017 Site #1 removed upon discharge. Manual pressure and bandage applied. --21:37 Jasper Hardy R.N. 21:42 02/11/17. Pain level now 0/10. --21:42 Jasper Hardy R.N. Locked/Released at 02/11/2017 21:42 by Jasper Hardy R.N.
--- NOTE | 2017-02-11 21:31 | ED CLINICAL REPORT ---
Clinical Report - Physicians/Mid Levels [address] [place] [address] 02/11/2017 17:39 [id number] Time Seen: 17:45. Historian- patient. HISTORY OF PRESENT ILLNESS Chief Complaint: Hypertension and Fatigue. This started yesterday and is still present. It was gradual in onset and has been waxing/waning. At its maximum, severity described as moderate. When seen in the E.D., severity described as moderate. Modifying factors. Not worsened by anything. Not relieved by anything. No weight loss, headache, visual disturbance or muscle aches. She has had fatigue and weakness. (BP usually 145-144. Pt's BP [id number] at 2 pm. She feels really tired without chest pain, shortness of breath or urinary symptoms. No focal numbness or weakness.). Similar symptoms previously: ( Yes for hypertension). Recent medical care: The patient was seen recently by a health care provider. ( Sent from Clinic). REVIEW OF SYSTEMS No fever, sore throat or throat, sinus drainage or nasal congestion. No cough, difficulty breathing, chest pain or pain or nausea. No vomiting, diarrhea, black stools, bloody stools or chills. No difficulty with urination or urination, back pain or pain or headache. No blackouts, chills, fever, eye irritation or ear pain. No cough, difficulty breathing, abdominal pain or urinary frequency. The patient has had mild abdominal pain ("anxiety"). She has had fatigue. PAST HISTORY PCP: Bj Ops: DILL[facility], [place], Illness: HTN, TIA, Salter's. Medications: Azithromycin Oral. Issa Aspirin Oral 81mg. Crestor Oral 10 mg, daily. Hydrochlorothiazide Oral 25 mg, daily. Levoxyl Oral 75 mcg, daily. Metoprolol 100 mg, 2x a day. Omeprazole Oral. Potassium day. Tramodol 50mg q 4-6 hrs. Vit b-12, cholesterol, fish oil. ALPRAZolam Oral. Allergies: Iodine. Sulfa Drugs. SOCIAL HISTORY Never smoker. ADDITIONAL NOTES The nursing notes have been reviewed. PHYSICAL EXAM Vital Signs: 02/11/2017 21:19 BP: 142/79. HR: 78. RR: 19. O2 saturation: 95%. 02/11/2017 21:09 BP: 152/70. HR: 78. RR: 16. O2 saturation: 96%. 02/11/2017 20:24 BP: 149/75. HR: 70. RR: 13. O2 saturation: 97%. 02/11/2017 19:34 BP: 157/79. HR: 68. RR: 14. O2 saturation: 100%. 02/11/2017 19:19 BP: 166/81. HR: 67. RR: 12. O2 saturation: 100%. Pain level now: 0/10. 02/11/2017 19:10 O2 saturation: 100%. 02/11/2017 19:05 O2 saturation: 100%. 02/11/2017 19:00 BP: 185/87. HR: 65. RR: 18. O2 saturation: 98%. 02/11/2017 18:45 BP: 193/85. HR: 88. RR: 20. O2 saturation: 100%. 02/11/2017 18:30 BP: 179/83. HR: 68. RR: 18. O2 saturation: 98%. 02/11/2017 18:15 BP: 169/85. HR: 65. RR: 18. O2 saturation: 98%. 02/11/2017 17:46 BP: 198/84. HR: 74. RR: 20. O2 saturation: 98%. Temp: 97.8 F. Appearance: Alert. No acute distress. Eyes: Eyes normal inspection. ENT: Pharynx normal. Neck: Normal inspection. CVS: Normal heart rate and rhythm. Heart sounds normal. Respiratory: No respiratory distress. Breath sounds normal. Abdomen: Soft and nontender. Bowel sounds normal. Back: Normal inspection. No CVA tenderness. Skin: Skin warm. Normal skin color. Extremities: Extremities exhibit normal ROM. No lower extremity edema. Neuro: No alteration in mental status. 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 No motor deficit. No sensory deficit. LABS, X-RAYS, AND EKG EKG: No acute process. No acute ischemia. Rhythm not normal sinus. Chest X-ray: (PROCEDURE: XR CHEST 1 VIEW INDICATION: WEAKNESS TECHNIQUE: Portable AP view (19 3 hours). COMPARISON: Compared to chest x-ray on 06/06/2014. FINDINGS: Lungs are clear. Mild cardiomegaly. Tortuous thoracic aorta. Old healed fracture of the left humeral head and neck. Thorax is otherwise normal. IMPRESSION: 1. Mild cardiomegaly. 2. Otherwise negative chest. Electronically Final signed by:Kei Maciel MD 02/11/2017 7:56:03 PM Technologist: DUY). Laboratory Tests: UA-Culture if indicated: (MAIA: 02/11/2017 19:05) ( MsgRcvd 02/11/2017 19:27) Final results Test Result Flag Units (Reference) URINE COLOR LIGHT YELLOW URINE APPEARANCE CLEAR URINE GLUCOSE NEGATIVE (NEGATIVE) URINE BILIRUBIN NEGATIVE (NEGATIVE) URINE KETONE NEGATIVE (NEGATIVE) URINE SPECIFIC GRAVITY <= 1.005 L (1.010-1.030) URINE PH 7.0 (5.0-8.0) URINE PROTEIN NEGATIVE (NEGATIVE) URINE UROBILINOGEN 0.2 EU/dL (0.2-1.0) URINE NITRITE NEGATIVE (NEGATIVE) URINE BLOOD TRACE-INTACT (NEGATIVE) URINE LEUK ESTERASE NEGATIVE (NEGATIVE) URINE RBC RARE rbc/hpf (0-1) URINE WBC NONE SEEN wbc/hpf (0-1) URINE EPITHELIAL CELLS RARE EPI/hpf (0-5) URINE BACTERIA NONE SEEN (NONE SEEN) URINE COMMENT CULT NOT INDICATED URINE CULTURES ARE SET-UP BASED ON THE FOLLOWING CRITERIA:POSITIVE NITRITEPOSITIVE LEUKOCYTE ESTERASEGREATER THAN 10 WHITE BLOOD CELLSMODERATE (2+) OR GREATER BACTERIA CBC w Diff: (MAIA: 02/11/2017 19:05) ( MsgRcvd 02/11/2017 19:17) Final results Test Result Flag Units (Reference) WHITE BLOOD COUNT 8.8 K/uL (4.5-11.5) RED BLOOD COUNT 4.38 M/uL (4.00-5.20) HEMOGLOBIN 13.4 gm/dL (12.0-16.0) HEMATOCRIT 40.0 % (36.0-46.0) MEAN CELL VOLUME 91 fL (80-100) MEAN CORPUSCULAR HGB 31 pg (26-34) MEAN CORPUSCULAR HGB CONC 34 g/dL (31-37) RED CELL DISTRIBUTION WIDTH 13.2 % (11.6-14.8) PLATELET COUNT 223 K/uL (150-400) NEUTROPHIL % 66.5 % (50-75) LYMPH % 27.0 % (25-40) MONO % 5.2 % (3-14) EOSINOPHIL % 1.2 % (0-4) BASOPHIL % 0.1 % (0-2) TSH: (MAIA: 02/11/2017 19:05) ( [facility] 02/11/2017 19:43) Final results Test Result Flag Units (Reference) THYROID STIMULATING HORMONE 1.850 uIU/mL (0.30-3.74) BNP: (MAIA: 02/11/2017 19:05) ( [facility] 02/11/2017 19:38) Final results Test Result Flag Units (Reference) B-TYPE NATRIURETIC PEPTIDE 123 H pg/ml (5-100) Lipase: (MAIA: 02/11/2017 19:05) ( [facility] 02/11/2017 19:26) Final results Test Result Flag Units (Reference) LIPASE 150 U/L (73-393) CHEM 13 PANEL: (MAIA: 02/11/2017 19:05) ( [facility] 02/11/2017 19:40) Final results Test Result Flag Units (Reference) GLUCOSE 102 mg/dL (70-110) BUN 29 H mg/dL (7-18) CREATININE 1.4 H mg/dL (0.6-1.3) Estimated GFR 37.72 mL/min Estimated GFR- 45.71 mL/min Note: Persistent reduction over 3 months in eGFR<60 mL/min/1.73 m2 defines CKD. Patients with eGFR values>=60 mL/min/1.73 m2 may also have CKD if evidence ofpersistent proteinuria. Additional information may be foundat www.kidney.org. SODIUM 142 mmol/L (136-145) POTASSIUM 3.1 L mmol/L (3.5-5.1) CHLORIDE 104 mmol/L (98-107) CARBON DIOXIDE 25 mmol/L (21-32) CALCIUM 9.7 mg/dL (8.5-10.1) TOTAL PROTEIN 7.6 g/dL (6.4-8.2) ALBUMIN 3.7 g/dL (3.3-5.0) BILIRUBIN, TOTAL 0.6 mg/dL (0.0-1.0) ALKALINE PHOSPHATASE 46 U/L (46-116) AST (SGOT) 19 U/L (15-37) ALT (SGPT) 26 U/L (12-78) CPK 72 U/L (24-260) MAGNESIUM 1.8 mg/dL (1.8-2.4) TROPONIN I <0.05 L ng/mL (0.00-1.5) TROPONIN REFERENCE RANGE:<0.1 NEGATIVE0.1-1.5 INDETERMINANT>1.5 POSITIVE . PROGRESS AND PROCEDURES Course of Care: Pretest DDX HBP - RO acute end organ injury Weakness, UTI, CHF ACH, Electrolytes, Thyroid,k+ 12:29 02/14/17. No evidence of hypertensive emergency. Hypertension resolved with observation alone. No evidence of serious cause of fatigue. No CVA, ACS, UTI, pneumonia, or major metabolic abnormality. The patient's K+ is slightly low. That is possibly part of the cause of her weakness. Disposition: Discharged. Condition: stable. CLINICAL IMPRESSION Essential hypertension. HISTORY OF FATIGUE. INSTRUCTIONS (ASA - ASK YOU DR IF HE WOULD LIKE YOU TO BE TAKING A BABY ASPIRIN PER DAY SINCE YOU HAD A MINISTROKE. YOUR BLOOD PRESSURE RETURNED TO SATISFACTORY WITHOUT A CHANGE IN TREATMENT. TAKE 2 POTASSIUM TODAY AND 1 TOMORROW, TWO THE NEXT DAY AND ONE DAY FOLLOWING ETC. THEN YOUR DR CAN RECHECK YOUR POTASSIUM. YOUR BLOOD AND URINE TESTS LOOKED GOOD OTHERWISE.). Follow-up: Follow up with your doctor in seven days. Understanding of the discharge instructions verbalized by patient and family. (Electronically signed by Pako Mata MD 02/14/2017 12:37)
--- NOTE | 2017-02-14 12:38 | ED MAR SUMMARY ---
..... Medication Administration Record [facility] [address] [place], [place] [id number] Patient: RICARDO AC Visit ID: [id number] 86y, F Weight: 70.3 kg Height/Length: 62 in BMI: 28.4 ALLERGIES: Iodine, Sulfa Drugs
--- NOTE | 2017-02-14 12:38 | ED DISCHARGE INSTRUCTIONS ---
Patient: RICARDO AC General Instructions [facility] VisitID: [id number] [place] [address] 86y, F Registration Date/Time: 02/11/2017 Essential hypertension. HISTORY OF FATIGUE. INSTRUCTIONS (ASA - ASK YOU DR IF HE WOULD LIKE YOU TO BE TAKING A BABY ASPIRIN PER DAY SINCE YOU HAD A MINISTROKE. YOUR BLOOD PRESSURE RETURNED TO SATISFACTORY WITHOUT A CHANGE IN TREATMENT. TAKE 2 POTASSIUM TODAY AND 1 TOMORROW, TWO THE NEXT DAY AND ONE DAY FOLLOWING ETC. THEN YOUR DR CAN RECHECK YOUR POTASSIUM. YOUR BLOOD AND URINE TESTS LOOKED GOOD OTHERWISE.). Follow-up: Follow up with your doctor in seven days. Understanding of the discharge instructions verbalized by patient and family. ADDITIONAL INFORMATION High Blood Pressure --Established High Blood Pressure (Hypertension) is a chronic disease. The cause is unknown in most cases. It can usually be controlled with lifestyle changes and/or medicines. Symptoms of high blood pressure may include headache, dizziness, visual changes, chest pain and shortness of breath. Sometimes it causes no symptoms at all. However, even if there are no symptoms, untreated high blood pressure increases the risk of heart attack, also known as acute myocardial infarction, or AMI, and stroke. It is a serious health risk and should not be ignored. A normal blood pressure is 120/80 or less. The first (top) number is the "systolic" pressure. The second (bottom) number is the "diastolic" pressure. Hypertension exists when either the top number is 140 or higher, OR the bottom number is 90 or higher on repeated measurements. Home Care: All patients with high blood pressure should do the following to lower their pressure. If you are on medicines, then these methods may reduce or eliminate your need for medicines in the future. Begin a weight loss program if you are overweight. Reduce your salt intake. Avoid high salt foods (olives, pickles, smoked meats, salted potato chips, etc.). Do not add salt to your food at the table. Use only small amounts of salt when cooking. Begin an exercise program. Discuss with your doctor what type of exercise program would be best for you. It doesn't have to be difficult. Even brisk walking for 20 minutes three times a week is a good form of exercise. Avoid medicines which contain heart stimulants. This includes many cold and sinus decongestant pills and sprays as well as diet pills. Check the warnings about hypertension on the label. Stimulants such as amphetamine or cocaine could be lethal for someone with hypertension. Never take these. Limit your caffeine intake or switch to caffeine-free products. Stop smoking. If you are a long-time smoker, this can be hard. Enroll in a stop-smoking program to improve your chance of success. Learning how to handle stress better is an important part of any program to lower blood pressure. Learn about relaxation methods such as meditation, yoga or biofeedback. If medicines were prescribed, take them exactly as directed. Missing doses may cause your blood pressure get out of control. Consider buying an automatic blood pressure machine (available at most pharmacies). Use this to monitor your blood pressure at home and report the results to your doctor. Follow Up: Regular visits to your own physician for blood pressure checks and medicine adjustment is an important part of your care. Make a follow-up appointment as directed by our staff. Get Prompt Medical Attention if any of the following occur: Chest pain or shortness of breath Severe headache Throbbing or rushing sound in the ears Nosebleed Sudden severe abdominal pain Extreme drowsiness, confusion or fainting Dizziness or vertigo (dizziness with spinning sensation) Weakness of an arm or leg or one side of the face Difficulty with speech or vision You have been given the following additional information: Hypertension, Established (Electronically signed by Pako Mata MD 02/14/2017 12:37)
--- NOTE | 2017-02-14 12:38 | ED MED RECONCILIATION SUMMARY ---
Patient: RICARDO AC Medication Reconciliation Report [facility] VisitID: [id number] [place] [address] 86y, F Registration Date/Time: 02/11/2017 Weight: 70.3 kg Height/Length: 62 in. BMI: 28.4 ALLERGIES: Iodine, Sulfa Drugs The patient's Home Medications are listed below: THE FOLLOWING MEDICATIONS NEED TO BE RECONCILED: ALPRAZolam Oral Azithromycin Oral Issa Aspirin Oral 81mg Crestor Oral 10 mg, daily Hydrochlorothiazide Oral 25 mg, daily Levoxyl Oral 75 mcg, daily Metoprolol 100 mg, 2x a day Omeprazole Oral Potassium day Tramodol 50mg q 4-6 hrs Vit b-12, cholesterol, fish oil The source(s) of the original Home Medication information: Not obtained. The following Medications were given to the patient in the Emergency Department: None. The following Medications were prescribed to the patient: None.
--- NOTE | 2017-02-14 12:38 | ED MED RECONCILIATION SUMMARY ---
Patient: RICARDO AC Medication Reconciliation Report [facility] VisitID: [id number] [place] [address] 86y, F Registration Date/Time: 02/11/2017 Weight: 70.3 kg Height/Length: 62 in. BMI: 28.4 ALLERGIES: Iodine, Sulfa Drugs The patient's Home Medications are listed below: THE FOLLOWING MEDICATIONS NEED TO BE RECONCILED: ALPRAZolam Oral Azithromycin Oral Issa Aspirin Oral 81mg Crestor Oral 10 mg, daily Hydrochlorothiazide Oral 25 mg, daily Levoxyl Oral 75 mcg, daily Metoprolol 100 mg, 2x a day Omeprazole Oral Potassium day Tramodol 50mg q 4-6 hrs Vit b-12, cholesterol, fish oil The source(s) of the original Home Medication information: Not obtained. The following Medications were given to the patient in the Emergency Department: None. The following Medications were prescribed to the patient: None.
--- NOTE | 2017-02-14 12:38 | ED MAR SUMMARY ---
..... Medication Administration Record [facility] [address] [place], [place] [id number] Patient: RICARDO AC Visit ID: [id number] 86y, F Weight: 70.3 kg Height/Length: 62 in BMI: 28.4 ALLERGIES: Iodine, Sulfa Drugs
== END 2017-02-11 21:40 | disposition home or self-care (01) ==
LOC: ED SRH 17:39
DX: I10 Essential (primary) hypertension (principal); R53.83 Other fatigue; Z79.899 Other long term (current) drug therapy; Z79.82 Long term (current) use of aspirin; Z91.041 Radiographic dye allergy status
CPT/HCPCS: 81460; 90004; 90100; 90616; 91320; 92235; 92610; 92720; 93140; 95059

== ENCOUNTER 2017-02-25 10:44 | Outpatient (CLI) | payer OTHER ==
--- NOTE | 2017-02-25 11:19 | DIAGNOSTIC IMAGING REPORT ---
PROCEDURE: CT HEAD WITHOUT CONTRAST INDICATION: CHRONIC HEADACHE TECHNIQUE: Axial CT images were acquired through the head. Coronal and sagittal reformations were created. COMPARISON: Head CT 10/01/2016 FINDINGS: Mild cortical atrophy. Normal ventricular system and brain parenchyma. No evidence of an acute CVA, hemorrhage, mass or midline shift. Stable calcification in the right frontal lobe white matter. IMPRESSION: 1. No acute changes 2. Mild atrophy All CT scans at this facility use dose modulation, iterative reconstruction, and/or weight-based dosing when appropriate to reduce radiation dose to as low as reasonably achievable.
== END 2017-02-25 23:00 ==
LOC: CT SRH 10:44
DX: R51 Headache (principal); G31.1 Senile degeneration of brain, not elsewhere classified